=== PATIENT | female | born 1980 | race Caucasian/White ===

== ENCOUNTER 2017-06-11 11:01 | Emergency (ER) | payer OTHER ==
[~2017-06-11] VITALS: Ht 162.6 cm; Wt 58.6 kg
[~2017-06-11 11:01] MED LIST: ECOTRIN81 MG PO; LASIX80 MG PO; PAXIL20 MG PO; PAXIL30 MG PO; REMERON30 MG PO; XANAX2 MG PO; ZOCOR10 MG PO; [UNRECOGNIZED DRUG - CODE]
[2017-06-11 12:52] VITALS: BP 118/80
== END 2017-06-11 12:52 | disposition home or self-care (01) ==
LOC: ED 11:01
DX: R50.9 Fever, unspecified (principal); R11.2 Nausea with vomiting, unspecified; Z98.82 Breast implant status; T85.49XA Other mechanical complication of breast prosthesis and implant, initial encounter; Y92.89 Other specified places as the place of occurrence of the external cause

== ENCOUNTER 2018-03-02 16:47 | Emergency (ER) | payer OTHER ==
[~2018-03-02] VITALS: Ht 162.6 cm; Wt 57.6 kg
[2018-03-02 17:19] VITALS: Ht 162.6 cm; Wt 57.6 kg
[2018-03-02 18:35] VITALS: BP 120/78
== END 2018-03-02 18:36 | disposition home or self-care (01) ==
LOC: ED 16:47
DX: L03.113 Cellulitis of right upper limb (principal); L03.114 Cellulitis of left upper limb

== ENCOUNTER 2018-08-19 08:39 | Emergency (ER) | payer OTHER ==
[~2018-08-19] VITALS: Ht 188 cm; Wt 59.0 kg
[2018-08-19 08:54] VITALS: Ht 188 cm; Wt 59.0 kg
[2018-08-19 12:09] VITALS: BP 97/58
== END 2018-08-19 12:09 ==
LOC: ED 08:39
DX: S39.012A Strain of muscle, fascia and tendon of lower back, initial encounter (principal); K21.9 Gastro-esophageal reflux disease without esophagitis; F41.9 Anxiety disorder, unspecified; F32.9 Major depressive disorder, single episode, unspecified; Z90.710 Acquired absence of both cervix and uterus; V49.88XA Car occupant (driver) (passenger) injured in other specified transport accidents, initial encounter; Y93.I9 Activity, other involving external motion; Y92.413 State road as the place of occurrence of the external cause; Y99.8 Other external cause status
CPT/HCPCS: J1885

== ENCOUNTER 2020-08-03 14:08 | Emergency (ER) | payer OTHER ==
[~2020-08-03] VITALS: Ht 162.6 cm; Wt 59.9 kg
[2020-08-03 14:20] VITALS: Ht 162.6 cm; Wt 59.9 kg
[2020-08-03 18:20] VITALS: BP 112/73
== END 2020-08-03 18:15 | disposition home or self-care (01) ==
LOC: ED 14:08
DX: L03.114 Cellulitis of left upper limb (principal); K21.9 Gastro-esophageal reflux disease without esophagitis; Z20.828 Contact with and (suspected) exposure to other viral communicable diseases
CPT/HCPCS: J0690